=== PATIENT | male | born 1965 | race American Indian/Alaskan Native ===

== ENCOUNTER 2018-12-03 12:16 | Emergency (ER) | payer SELFPAY ==
--- NOTE | 2018-12-03 12:24 | Emergency Department Report ---
Blank Doc - Documentation Documentation: 53 y o male presents tto Ed cc of rightsided lower butt/back pain and right an terior thigh pain x 1 week Prt states he does a lot of heavy lifting and thinks he may have pulled something, denies trauma,injury or fall, dysuria [facility] eval
[2018-12-03] MEDS ORDERED: TORADOL IM ONE (12:31)
[2018-12-03 12:32] VITALS: BP 145/80
--- NOTE | 2018-12-03 12:38 | Emergency Department Report ---
ED Back Pain/Injury HPI - General Chief Complaint: Back Pain/Injury Stated Complaint: R LEG AND BACK PAIN Time Seen by Provider: 12/03/18 12:21 Source: patient Limitations: No Limitations - History of Present Illness Initial Comments: Mr. Banegas is a 53 yo male without significant past medical history who presents with lower back pain radiating to the right leg. Pain began gradually 1 week ago. 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 He works in [employer] in [place]. He currently works as a lenard. He always performs heavy lifting and bending. Mild achy pain. Walks easily. He drove by private [place] to the [place]. No previous history of trauma. No history of falls, motor vehicle accident, or sports injuries. He feels that a few days off of work will help his pain. MD Complaint: back pain -: Gradual, week(s) (1) Similar Symptoms Previously: No Severity: mild Quality: dull, aching Improves With: none Worsens With: none Associated Symptoms: denies other symptoms - Related Data Previous Rx's Medication Instructions Recorded Last Taken Type Cyclobenzaprine [Flexeril] 10 mg PO TID PRN #20 tablet 12/03/18 Unknown Rx HYDROcodone/APAP 5-325 [Ganado 1 each PO Q6HR PRN #10 tablet 12/03/18 Unknown Rx 5/325] Ibuprofen [Motrin 800 MG tab] 800 mg PO TID 5 Days #15 tablet 12/03/18 Unknown Rx Allergies Allergy/AdvReac Type Severity Reaction Status Date / Time No Known Allergies Allergy Unverified 12/03/18 12:18 ED Review of Systems ROS: Stated complaint: R LEG AND BACK PAIN Other details as noted in HPI Comment: All other systems reviewed and negative Constitutional: denies: fever, malaise Respiratory: denies: shortness of breath Cardiovascular: denies: chest pain Gastrointestinal: denies: abdominal pain Neurological: denies: numbness, paresthesias ED Past Medical Hx - Past Medical History Previous Medical History?: No - Surgical History Past Surgical History?: No - Social History Smoking Status: Current Every Day Smoker Substance Use Type: Alcohol, Other - Medications Home Medications: Home Medications Medication Instructions Recorded Confirmed Last Taken Type Cyclobenzaprine [Flexeril] 10 mg PO TID PRN #20 tablet 12/03/18 Unknown Rx HYDROcodone/APAP 5-325 [Ganado 1 each PO Q6HR PRN #10 tablet 12/03/18 Unknown Rx 5/325] Ibuprofen [Motrin 800 MG tab] 800 mg PO TID 5 Days #15 tablet 12/03/18 Unknown Rx ED Physical Exam - General Limitations: No Limitations General appearance: alert, in no apparent distress - Head Head exam: Present: atraumatic, normocephalic - Eye Eye exam: Present: normal appearance - ENT ENT exam: Present: mucous membranes moist - Neck Neck exam: Present: normal inspection, full ROM - Respiratory Respiratory exam: Present: normal lung sounds bilaterally. Absent: respiratory distress, wheezes, rales, rhonchi - Cardiovascular Cardiovascular Exam: Present: regular rate, normal rhythm, normal heart sounds. Absent: systolic murmur, diastolic murmur, rubs, gallop - GI/Abdominal GI/Abdominal exam: Present: soft, normal bowel sounds. Absent: distended, tenderness, guarding, rebound - Rectal Rectal exam: Present: deferred - Extremities Exam Extremities exam: Present: normal inspection - Back Exam Back exam: Present: normal inspection, full ROM, muscle spasm. Absent: tenderness, CVA tenderness (R), CVA tenderness (L), paraspinal tenderness, vertebral tenderness - Neurological Exam Neurological exam: Present: alert, oriented X3 - Psychiatric Psychiatric exam: Present: normal affect, normal mood - Skin Skin exam: Present: warm, dry, intact, normal color. Absent: rash ED Course Vital Signs 12/03/18 12:22 Temperature 99.9 F H Pulse Rate 89 Respiratory 20 Rate Blood Pressure 145/80 O2 Sat by Pulse 97 Oximetry ED Medical Decision Making - Medical Decision Making Mr. Banegas presents with lumbar strain and symptoms of radiculopathy. Strongly recommended evaluation by chiropractor. He is neurologically intact. No red flags such as trauma, advanced age, drug abuse, weight loss. Discharged home with prescriptions for ibuprofen and Flexeril and Ganado Critical care attestation.: If time is entered above; I have spent that time in minutes in the direct care of this critically ill patient, excluding procedure time. ED Disposition Clinical Impression: Lumbar strain Disposition: DC-01 TO HOME OR SELFCARE Is pt being admited?: No Does the pt Need Aspirin: No Condition: Stable Instructions: Sciatica (ED) Additional Instructions: Please see a chiropractor at your earliest convenience. Prescriptions: Cyclobenzaprine [Flexeril] 10 mg PO TID PRN #20 tablet PRN Reason: Muscle Spasm Ibuprofen [Motrin 800 MG tab] 800 mg PO TID 5 Days #15 tablet HYDROcodone/APAP 5-325 [Ganado 5/325] 1 each PO Q6HR PRN #10 tablet PRN Reason: Pain Forms: Work/School Release Form(ED)
== END 2018-12-03 12:57 | disposition home or self-care (01) ==
LOC: ED 12:16
DX: S39.012A Strain of muscle, fascia and tendon of lower back, initial encounter (principal); F17.200 Nicotine dependence, unspecified, uncomplicated; X50.1XXA Overexertion from prolonged static or awkward postures, initial encounter; Y93.89 Activity, other specified; Y92.89 Other specified places as the place of occurrence of the external cause; Y99.8 Other external cause status
CPT/HCPCS: 96372; 99282; J1885

== ENCOUNTER 2018-12-11 07:07 | Emergency (ER) | payer SELFPAY ==
[2018-12-11 07:11] VITALS: BP 130/97
[2018-12-11] MEDS ORDERED: NORCO 5/325 PO ONE (08:09)
[2018-12-11] MEDS ORDERED: FLEXERIL PO ONE (08:09)
[2018-12-11] MEDS ORDERED: DECADRON IM ONE (08:09)
--- NOTE | 2018-12-11 08:09 | Emergency Department Report ---
HPI - General Chief Complaint: Back Pain/Injury Time Seen by Provider: 12/11/18 07:22 - HPI HPI: Patient is a 53-year-old male who comes to the emergency room complaining of right lower extremity pain radiating from his lumbar back. He states that he has a history of sciatica and was seen here recently for it. He states that he was told to follow up with a chiropractor but did not. Patient is ambulatory. He has no CVA tenderness or point tenderness. There is been no new trauma. Rest and not working makes the pain go away. Patient is requesting a work note. Patient states that the medications only provide some relief. ED Past Medical Hx - Past Medical History Previous Medical History?: No - Surgical History Past Surgical History?: No - Family History Family history: no significant - Social History Smoking Status: Current Every Day Smoker Substance Use Type: None - Medications Home Medications: Home Medications Medication Instructions Recorded Confirmed Last Taken Type HYDROcodone/APAP 5-325 [[place] 1 each PO Q6HR PRN #10 tablet 12/03/18 Unknown Rx 5/325] Cyclobenzaprine [Flexeril] 10 mg PO TID PRN #20 tablet 12/11/18 Unknown Rx Ibuprofen [Motrin 800 MG tab] 800 mg PO TID 5 Days #15 tablet 12/11/18 Unknown Rx predniSONE [Deltasone] 20 mg PO DAILY #5 tablet 12/11/18 Unknown Rx ED Review of Systems ROS: Stated complaint: BACK/LEG PAIN Other details as noted in HPI Comment: All other systems reviewed and negative Gastrointestinal: denies: abdominal pain, nausea, vomiting Genitourinary: denies: urgency, dysuria Musculoskeletal: as per HPI, back pain Skin: denies: rash, lesions Physical Exam - Physical Exam Vital Signs: Vital Signs 12/11/18 07:11 Temperature 99.4 F Pulse Rate 87 Respiratory 16 Rate Blood Pressure 130/97 [Right] O2 Sat by Pulse 97 Oximetry Physical Exam: WDWN patient in NAD VS per RN flow sheet Alert and oriented to person, place and time. S1-S2. No S3 or S4. No systolic or diastolic murmur. No JVD. No pitting edema. Lungs clear to auscultation bilaterally anteriorly and posteriorly. Abdomen soft nontender bowel sounds -4. Moves all extremities well. No CVA tenderness. No foot drop. No spine tenderness. Patient is ambulatory. There is no incontinence. No fever. Denies dysuria or discharge. Patient has positive right straight leg raise test. Mood and affect appropriate. ED Course Vital Signs 12/11/18 07:11 Temperature 99.4 F Pulse Rate 87 Respiratory 16 Rate Blood Pressure 130/97 [Right] O2 Sat by Pulse 97 Oximetry ED Medical Decision Making - Medical Decision Making See HPI. Physical findings positive for a positive right straight leg raise. No dysuria, no CVA tenderness, no spinal point tenderness, no fall, no fever. Patient requesting a work note for the last few days. I discussed follow-up with the patient. Told him we could give him a work note for today but that he would need to follow up with Dr. Pedroza or another orthopedic doctor for further work restrictions. Vital Signs 12/11/18 07:11 Temperature 99.4 F Pulse Rate 87 Respiratory 16 Rate Blood Pressure 130/97 [Right] O2 Sat by Pulse 97 Oximetry - Differential Diagnosis acute on chronic sciatica pain. Critical care attestation.: If time is entered above; I have spent that time in minutes in the direct care of this critically ill patient, excluding procedure time. ED Disposition Clinical Impression: Lumbar strain, Sciatica, right side Disposition: DC-01 TO HOME OR SELFCARE Is pt being admited?: No Does the pt Need Aspirin: No Condition: Stable Instructions: Sciatica (ED) Prescriptions: predniSONE [Deltasone] 20 mg PO DAILY #5 tablet Cyclobenzaprine [Flexeril] 10 mg PO TID PRN #20 tablet PRN Reason: Muscle Spasm Ibuprofen [Motrin 800 MG tab] 800 mg PO TID 5 Days #15 tablet Referrals: [facility] MD KARINA [Primary Care Provider] - 3-5 Days BAMIB OCASIO MD [Staff] - 3-5 Days Time of Disposition: 08:14
== END 2018-12-11 08:31 | disposition home or self-care (01) ==
LOC: ED 07:07
DX: S39.012A Strain of muscle, fascia and tendon of lower back, initial encounter (principal); M54.31 Sciatica, right side; F17.200 Nicotine dependence, unspecified, uncomplicated; X58.XXXA Exposure to other specified factors, initial encounter; Y93.89 Activity, other specified; Y92.89 Other specified places as the place of occurrence of the external cause; Y99.8 Other external cause status
CPT/HCPCS: 96372; 99282; J1100

== ENCOUNTER 2018-12-21 11:24 | Emergency (ER) | payer OTHER ==
--- NOTE | 2018-12-21 11:51 | Emergency Department Report ---
Blank Doc - Documentation Documentation: This is a 53-year-old male that presents with left shoulder and lower back pain. Denies any urinary symptoms or trauma. This initial assessment/diagnostic orders/clinical plan/treatment(s) is/are subject to change based on patient's health status, clinical progression and re- assessment by fellow clinical providers in the ED. Further treatment and workup at subsequent clinical providers discretion. Patient/guardians urged not to elope from the ED as their condition may be serious if not clinically assessed and managed. Initial orders include: 1- Patient sent to [facility] for further evaluation and treatment 2- xray
[2018-12-21 11:53] VITALS: BP 143/86
--- NOTE | 2018-12-21 13:33 | XRay Report ---
LUMBOSACRAL SPINE, 3 VIEWS: History: Back pain Findings: No evidence for compression deformity, subluxation or bone lesion. Moderate degenerative disc disease is identified at L4-5. Mild disc space narrowing at L3-4 and L5-S1. The facet joints are unremarkable. Impression: Mild lumbar spondylosis as described. L4-5 is the most affected level.
--- NOTE | 2018-12-21 13:34 | XRay Report ---
LEFT SHOULDER: History: Left shoulder pain. Routine views demonstrate normal bony and soft tissue structures with normal joint alignment of the shoulder. IMPRESSION: Unremarkable left shoulder films.
[2018-12-21] MEDS ORDERED: TORADOL IM ONE (13:54)
[2018-12-21] MEDS ORDERED: DEPO-Medrol IM ONE (13:54)
--- NOTE | 2018-12-21 13:58 | Emergency Department Report ---
ED Back Pain/Injury HPI - General Chief Complaint: Back Pain/Injury Stated Complaint: ARM/BACK PAIN Time Seen by Provider: 12/21/18 11:51 Source: patient Limitations: No Limitations - History of Present Illness Initial Comments: PT is a 53-year-old male who comes to the ER today with shoulder and back pain. This is his third visit this month with orthopedic complaints. Each time he is requesting a work note from work. Patient is not following up with referrals. I suspect he is not getting his prescriptions filled given in the ER. Patient denies any trauma MD Complaint: back pain Similar Symptoms Previously: Yes Place: work Radiation: none - Related Data Previous Rx's Medication Instructions Recorded Last Taken Type Naproxen [Naprosyn] 500 mg PO BID PRN #20 tablet 12/21/18 Unknown Rx Allergies Allergy/AdvReac Type Severity Reaction Status Date / Time No Known Allergies Allergy Unverified 12/03/18 12:18 ED Review of Systems ROS: Stated complaint: ARM/BACK PAIN Other details as noted in HPI Comment: All other systems reviewed and negative ED Past Medical Hx - Past Medical History Medical history: no medical history Family history: no significant family history ED Back Pain Physical Exam - Exam General: Vital signs noted. No distress. Alert and acting appropriately. WDWN patient in NAD VS per RN flow sheet Alert and oriented to person, place and time. S1-S2. No S3 or S4. No systolic or diastolic murmur. No JVD. No pitting edema. Lungs clear to auscultation bilaterally anteriorly and posteriorly. Abdomen soft nontender bowel sounds X4 Moves all extremities well. Mood and affect appropriate. Back/Abdomen: No Abdominal Tenderness, No Perithoracic Tenderness, No Perilumbar Tenderness, No Sacroiliac Tenderness, No Flank Tenderness, No Straight Leg Raise Pain Neuro: Yes Normal Sensation, Yes Normal DTR's, Yes Normal Gait, No Motor Weakness ED Course Vital Signs 12/21/18 11:51 Temperature 98.3 F Pulse Rate 76 Respiratory 18 Rate Blood Pressure 143/86 [Left] O2 Sat by Pulse 97 Oximetry Ed Back Pain Tests - Tests Tests: Normal X Rays ED Medical Decision Making - Radiology Data Radiology results: report reviewed, image reviewed - Medical Decision Making a/c pain here 6-2 and 6-10 and today all with ortho complaints, requesting work note and not following up with ortho/pcp medicated IM today I discussed with patient the importance of follow-up with orthopedics and/or primary care given his frequent ER complaints of arthralgia-type pain in the context of no trauma. He verbalizes understanding. dc home with ortho follow up Vital Signs 12/21/18 11:51 Temperature 98.3 F Pulse Rate 76 Respiratory 18 Rate Blood Pressure 143/86 [Left] O2 Sat by Pulse 97 Oximetry Critical care attestation.: If time is entered above; I have spent that time in minutes in the direct care of this critically ill patient, excluding procedure time. ED Disposition Clinical Impression: Shoulder pain, left, Back pain, Chronic pain Disposition: DC-01 TO HOME OR SELFCARE Is pt being admited?: No Does the pt Need Aspirin: No Condition: Stable Instructions: Osteoarthritis (ED) Additional Instructions: FOLLOW UP WITH PCP OR ORTHO MD REFERRAL BELOW Prescriptions: Naproxen [Naprosyn] 500 mg PO BID PRN #20 tablet PRN Reason: Pain Referrals: JEANNE LARA MD [Staff Physician] - 3-5 Days NOE BAR MD [Staff Physician] - 3-5 Days Time of Disposition: 13:57
== END 2018-12-21 14:54 | disposition home or self-care (01) ==
LOC: ED 11:24
DX: G89.29 Other chronic pain (principal); M25.512 Pain in left shoulder; M54.9 Dorsalgia, unspecified; X58.XXXA Exposure to other specified factors, initial encounter; Y93.89 Activity, other specified; Y92.69 Other specified industrial and construction area as the place of occurrence of the external cause; Y99.8 Other external cause status
CPT/HCPCS: 72100; 73030; 96372; 99283; J1040; J1885